=== PATIENT | female | born 1980 | race Caucasian/White ===

== ENCOUNTER → 2016-06-10 | Outpatient (CLI) | payer OTHER, MEDICAID ==
[~2016-06-10] MED LIST: /BUDEAQINH; ACET500C PO; AUGM875T27 PO; BENA25CA2 PO; CEFD1CAP8 PO; CETI10TA GT; CETI10TA PO; EFFE37.527 PO; EFFE75CA75 PO; EXCETAB80 PO; FLUTISP; IBUP60TA PO; IMPLANON ID; IRON INFUSION IV; LISI40TAB PO; LORA-376 PO; NORCOTAB PO; NORV5TAB PO; PYRI100T2 PO; SING4GRA PO; VENL75CA PO; Vitamin D2 PO; ZOFR8TAB PO; folate PO; iron sulfate PO
[2016-06-10 09:45] LABS: BASO # 0.1 K/mm3 (0.0-0.2); BASO % 1.2 % (0.0-1.0); EOS # 0.2 K/mm3 (0.0-0.50); EOS % 2.2 % (0.0-3.0); LYMPH # 1.6 K/mm3 (1.5-4.5); LYMPH % 17.4 % (24.0-44.0); MEAN CORPUSCULAR HEMOGLOBIN 27.5 pg (27.0-33.0); MEAN CORPUSCULAR HGB CONC 31.8 g/dl (32.0-36.5); MEAN CORPUSCULAR VOLUME 86.4 fl (80.0-96.0); MONO # 0.5 K/mm3 (0.0-0.8); MONO % 6.4 % (0.0-5.0); NEUTROPHILS # 5.8 K/mm3 (1.8-7.7); RED CELL DISTRIBUTION WIDTH 16.7 % (11.5-14.5); WHITE BLOOD COUNT 8.1 K/mm3 (4.0-10.0)
[2016-06-10 10:27] LABS: ALBUMIN 3.7 GM/DL (3.2-5.2); ALBUMIN/GLOBULIN RATIO 1.09 (1.00-1.93); ALKALINE PHOSPHATASE 115 U/L (45-117); ALT/SGPT 76 U/L (12-78); ANION GAP 8 MEQ/L (8-16); AST/SGOT 26 U/L (15-37); BILIRUBIN,TOTAL 0.4 MG/DL (0.2-1.0); BLOOD UREA NITROGEN 10 MG/DL (7-18); CALCIUM LEVEL 8.4 MG/DL (8.5-10.1); CARBON DIOXIDE LEVEL 27 MEQ/L (21-32); CHLORIDE LEVEL 109 MEQ/L (98-107); CHOLESTEROL LEVEL 134 MG/DL (<200); CREATININE FOR GFR 0.78 MG/DL (0.55-1.02); GLOMERULAR FILTRATION RATE > 60.0 (>60); GLUCOSE, FASTING 102 MG/DL (70-105); POTASSIUM SERUM 4.6 MEQ/L (3.5-5.1); SODIUM LEVEL 144 MEQ/L (136-145); TOTAL PROTEIN 7.1 GM/DL (6.4-8.2); TRIGLYCERIDES LEVEL 76 MG/DL (<150)
--- NOTE | 2016-06-10 10:43 | REP ---
Chest x-ray PA and lateral: 06/10/2016 Comparison 09/06/2015, 06/02/2014. Clinical history chronic cough. Smoker for 25 years. There is an indwelling right jugular port catheter again seen with tip in SVC appearance unchanged. Lungs are well inflated. There is no pleural effusion, lateral pleural thickening apical scarring or pneumothorax. No infiltrate, atelectasis or mass. The coy show mildly prominent pulmonary arteries centrally and some cuffed bronchi. This may reflect reactive airway disease or bronchitis. No cardiomegaly, vascular redistribution or edema. The aorta is normal. Airway intact. Bony thorax without focal lesion. No free air under the diaphragm. There are surgical clips right upper quadrant from presumed cholecystectomy. Impression: 1. Hyperinflation with evidence of bronchitis or reactive airway disease. There is an indwelling right jugular central catheter. Nothing acute otherwise. Signed by Chin Herrera MD 06/10/2016 05:17 P
== END ==
LOC: M LAB 09:22
PROVIDERS: ATTEND Physician Assistant Medical
DX: Z72.0 Tobacco use (principal); R05 Cough; R06.02 Shortness of breath; I10 Essential (primary) hypertension; E55.9 Vitamin D deficiency, unspecified

== ENCOUNTER 2016-08-05 10:04 | Emergency (ER) | payer MEDICAID, OTHER ==
[~2016-08-05] VITALS: Ht 157.5 cm; Wt 95.7 kg
[2016-08-05] MEDS ORDERED: EFFE75CA75 PO (10:20)
[2016-08-05] MEDS ORDERED: RANI75TA9 PO (10:20)
[2016-08-05] MEDS ORDERED: LISI40TAB PO (10:20)
[2016-08-05] MEDS ORDERED: EFFE37.527 PO (10:20)
[2016-08-05] MEDS ORDERED: IPRATROPIUM 0.5MG/ALBUTEROL 2.5MG INH SOL UD 3ML (DUONEB)(J7620) NEB ONE (11:00)
[2016-08-05] MEDS ORDERED: MORPHINE 2 MG/ML 1ML SYRINGE IV ONE (11:00)
[2016-08-05] MEDS ORDERED: ISOVUE-370 76% 100ML VIAL (Q9967) As Ordered ONE (11:08)
[2016-08-05 11:31] LABS: BASO % 0.5 % (0.0-1.0); EOS # 0.2 K/mm3 (0.0-0.50); EOS % 2.3 % (0.0-3.0); LARGE UNSTAINED CELL # 0.2 K/mm3 (0.0-0.4); LARGE UNSTAINED CELL % 2.2 % (0.0-4.0); LYMPH # 2.5 K/mm3 (1.5-4.5); MEAN CORPUSCULAR HGB CONC 33.3 g/dl (32.0-36.5); MEAN CORPUSCULAR VOLUME 87.1 fl (80.0-96.0); MONO # 0.6 K/mm3 (0.0-0.8); MONO % 5.8 % (0.0-5.0); NEUTROPHILS # 6.3 K/mm3 (1.8-7.7); NEUTROPHILS % 65.2 % (36.0-66.0); PLATELET COUNT, AUTOMATED 310 k/mm3 (150-450); RED CELL DISTRIBUTION WIDTH 15.2 % (11.5-14.5); WHITE BLOOD COUNT 9.6 K/mm3 (4.0-10.0)
[2016-08-05 12:26] LABS: ANION GAP 9 MEQ/L (8-16); BLOOD UREA NITROGEN 11 MG/DL (7-18); CALCIUM LEVEL 8.9 MG/DL (8.5-10.1); CARBON DIOXIDE LEVEL 23 MEQ/L (21-32); CHLORIDE LEVEL 105 MEQ/L (98-107); CREATININE FOR GFR 0.66 MG/DL (0.55-1.02); GLOMERULAR FILTRATION RATE > 60.0 (>60); GLUCOSE, FASTING 103 MG/DL (70-105); POTASSIUM SERUM 4.3 MEQ/L (3.5-5.1); SODIUM LEVEL 137 MEQ/L (136-145)
[2016-08-05] MEDS ORDERED: MORPHINE 4 MG/ML 1ML SYRINGE IV ONE (13:30)
--- NOTE | 2016-08-05 13:33 | REP ---
CT pulmonary angiogram: With IV contrast. History: Chest pain, shortness of breath. Comparison studies: January 10, 2019. Contrast dose: 75 cc's of Isovue [address] technique: Helical scanning is acquired and overlapping 1.5 mm and contiguous 3 mm axial images are reformatted. In addition, a 3-D work station is deployed to generate thick slab maximum intensity projection images in sagittal and coronal imaging projections. CT pulmonary angiographic findings: There is good opacification of the pulmonary arterial tree and there is no CT evidence of pulmonary embolism. The thoracic aorta enhances homogeneously and is normal in course and caliber. No pleural or pericardial effusion is seen. There is a right-sided [id number] catheter. No hilar or mediastinal mass or adenopathy is observed. The lung michele show no evidence of infiltrate, mass or significant pulmonary nodule. Maximal intensity projection images show no filling defects within the pulmonary arterial tree. No lung nodule is appreciated. No bony destructive lesion is appreciated. There are clips in the gallbladder fossa. The visualized upper abdominal structures are otherwise unremarkable. A small accessory splenule is noted. Impression: No CT evidence of pulmonary embolism. No active disease. Right-sided [id number]-R-Ilvy. Signed by Ramiro Canela MD 08/05/2016 02:05 P
[2016-08-05] MEDS ORDERED: PRED20TA PO (13:49)
[2016-08-05] MEDS ORDERED: ALBU17IN INH (13:49)
[2016-08-05] MEDS ORDERED: TESS100C PO (13:49)
[2016-08-05 14:02] VITALS: BP 128/67
== END 2016-08-05 14:13 | disposition home or self-care (01) ==
LOC: M ED 10:55
DX: J20.9 Acute bronchitis, unspecified (principal); J04.0 Acute laryngitis; F17.210 Nicotine dependence, cigarettes, uncomplicated
CPT/HCPCS: 36415; 71275; 80048; 85025; 94640; 96374; 96376; 99283; Q9967